=== PATIENT | female | born 1970 | race Asian ===

== ENCOUNTER 2018-09-03 04:08 | Emergency (ER) | payer OTHER ==
[~2018-09-03] VITALS: Ht 154.9 cm; Wt 55.0 kg
[2018-09-03 04:13] VITALS: BP 126/90
[2018-09-03] MEDS ORDERED: CYCL10 PO (04:21)
[2018-09-03] MEDS ORDERED: DRON2.5C19 PO (04:21)
[2018-09-03] MEDS ORDERED: HYD25 PO (04:21)
== END 2018-09-03 04:45 | disposition home or self-care (01) ==
LOC: EMS 04:11
DX: S46.812A Strain of other muscles, fascia and tendons at shoulder and upper arm level, left arm, initial encounter (principal); X58.XXXA Exposure to other specified factors, initial encounter; Y93.89 Activity, other specified; Y92.89 Other specified places as the place of occurrence of the external cause; Y99.8 Other external cause status